=== PATIENT | male | born 1955 | race Caucasian/White ===

== ENCOUNTER 2021-06-12 12:27 | Emergency (ER) | payer MEDICARE, MEDICAID ==
[~2021-06-12] VITALS: Ht 172.7 cm; Wt 61.4 kg
[~2021-06-12 12:27] MED LIST: BENA20TA82 PO; IBUP-1984 PO; LOP25T PO; SIMV-42 PO
[2021-06-12] MEDS ORDERED: proCHLORperazine 10 MG/2 ml inj IV ONE (12:45)
[2021-06-12 12:55] LABS: BASOPHILS # (AUTO) 0.1 X10'3 (0-0.2); BASOPHILS % (AUTO) 1.2 % (0-1); EOSINOPHILS # (AUTO) 0.1 X10'3 (0-0.9); EOSINOPHILS % (AUTO) 1.8 % (0-6); HEMATOCRIT 38.2 % (42.0-52.0); HEMOGLOBIN 11.9 g/dl (14.0-17.9); LYMPHOCYTES # (AUTO) 1.5 X10'3 (1.1-4.8); LYMPHOCYTES % (AUTO) 20.3 % (21-51); MEAN CORPUSCULAR HEMOGLOBIN 24.2 PG (27.0-31.0); MEAN CORPUSCULAR HGB CONC 31.1 g/dL (33.0-36.5); MEAN CORPUSCULAR VOLUME 77.8 FL (78-98); MEAN PLATELET VOLUME 7.4 FL (7.4-10.4); MONOCYTES # (AUTO) 0.7 X10'3 (0-0.9); MONOCYTES % (AUTO) 9.3 % (2-12); NEUTROPHILS % (AUTO) 67.4 % (42-75); PLATELET COUNT 396 X10'3 (140-440); RED BLOOD COUNT 4.91 X10'6 (4.70-6.10); RED CELL DISTRIBUTION WIDTH 18.8 % (11.5-14.5); WHITE BLOOD COUNT 7.5 X10'3 (4.5-11.0)
[2021-06-12 13:10] LABS: PARTIAL THROMBOPLASTIN TIME 27 SECONDS (22-32)
[2021-06-12 13:11] LABS: ALANINE AMINOTRANSFERASE 10 U/L (12-78); ALBUMIN 3.1 G/DL (3.4-5.0); ALBUMIN/GLOBULIN RATIO 0.7 (1.1-1.5); ALKALINE PHOSPHATASE 117 IU/L (46-116); ANION GAP 10 (8-16); ASPARTATE AMINO TRANSFERASE 12 U/L (10-37); BILIRUBIN,TOTAL 0.3 MG/DL (0.1-1.0); BLOOD UREA NITROGEN 16 MG/DL (7-18); BUN/CREATININE RATIO 17.2 (5.4-32.0); CALCIUM 8.9 MG/DL (8.5-10.1); CHLORIDE 101 MMOL/L (99-107); CREATININE 0.93 MG/DL (0.60-1.10); GLUCOSE 121 MG/DL (70-104); POTASSIUM 3.8 MMOL/L (3.5-5.1); SODIUM 137 MMOL/L (135-145); TOTAL CARBON DIOXIDE 26.4 MMOL/L (24-32); TOTAL PROTEIN 7.6 G/DL (6.4-8.2); eGFR 81 ML/MIN
[2021-06-12] MEDS ORDERED: ketorolac trometh. 30mg/ml inj. IV ONE (13:30)
[2021-06-12] MEDS ORDERED: normal saline 1000ml 1,000 ML IV ONE ×2 (13:30→14:15)
[2021-06-12] MEDS ORDERED: SUMAtriptan succ. 6 MG/0.5ml vial SQ ONE (13:30)
[2021-06-12] MEDS ORDERED: acetaminophen 325mg tablet PO ONE (13:30)
[2021-06-12 13:37] LABS: PLATELET ESTIMATE NORMAL
[2021-06-12 13:38] LABS: ANISOCYTOSIS 2+; MICROCYTOSIS 1+
[2021-06-12] MEDS ORDERED: FLO0.4C PO (13:56)
[2021-06-12] MEDS ORDERED: OMEP40CA21 PO (13:56)
[2021-06-12] MEDS ORDERED: FERR325T29 PO (13:56)
[2021-06-12] MEDS ORDERED: CefTRIAXone/D5W-Rocephin 1gm 50 ML IV ONE (14:15)
[2021-06-12] MEDS ORDERED: azithromycin/NS 500mg/250ml 250 ML IV ONE (14:15)
--- NOTE | 2021-06-12 15:15 | NUR ---
Collect urine using straight cath technique. patient tolerated well.
[2021-06-12 15:31] LABS: UA COLLECTION TYPE STRAIGHT CATH
[2021-06-12 15:32] LABS: CLARITY,URINE CLEAR (Clear); COLOR,URINE YELLOW (Yellow); GLUCOSE, URINE NEGATIVE (Neg); KETONES,URINE NEGATIVE (Neg); NITRITES, URINE NEGATIVE (Neg); OCCULT BLOOD,URINE NEGATIVE (Neg); PROTEIN,URINE TRACE mg/dl (Neg); URINE AMPHETAMINE SCREEN POSITIVE (Neg); URINE BARBITUATE SCREEN NEGATIVE (Neg); URINE BENZODIAZEPINES SCREEN NEGATIVE (Neg); URINE CANNABINOID SCREEN POSITIVE (Neg); URINE COCAINE SCREEN NEGATIVE (Neg); URINE METHADONE SCREEN NEGATIVE (Neg); URINE OPIATE SCREEN NEGATIVE (Neg); URINE PHENCYCLIDINE SCREEN NEGATIVE (Neg)
[2021-06-12 15:33] LABS: LEUKOCYTE ESTERASE ,URINE NEGATIVE (Neg); UROBILINOGEN,URINE 0.2 E.U/dL (0.2-1.0)
[2021-06-12 15:40] LABS: CELLULAR CAST 0-4 /LPF (NEGATIVE); SQUAMOUS EPITHELIAL CELL,UR FEW /LPF (FEW)
[2021-06-12 15:42] LABS: BACTERIA,URINE FEW /HPF (Neg); RBC,URINE 0-2 /HPF (0-2); WBC,URINE 0-4 /HPF (0-4)
[2021-06-12] MEDS ORDERED: iohexol 350MG/ML 100ml bottle IV ONE ×2 (15:50→16:28)
[2021-06-12] MEDS ORDERED: CEPH250T PO (19:00)
--- NOTE | 2021-06-12 19:00 | NUR ---
UPON SHIFT CHANGE, THIS PT ARRIVED AND PT WANTS TO LEAVE AMA; DR BARCLAY SPOKE WITH FAMILY AND THEY WANT TO LEAVE; PT IS AOX4 AND INDEPENDENT; PT SIGNED AMA FORM AND WAS TURNED IN; IVS REMOVED; PT WC TO CAR AND AMBULATED FROM RAP TO VEHICLE APPROPRIATELY; VSS UPON DC
[2021-06-12 19:37] VITALS: BP 109/68
== END 2021-06-12 19:01 | disposition left against medical advice (07) ==
LOC: ER 12:27
DX: J18.9 Pneumonia, unspecified organism (principal); R51.9 Headache, unspecified; G93.41 Metabolic encephalopathy; R47.1 Dysarthria and anarthria; I95.9 Hypotension, unspecified; I25.10 Atherosclerotic heart disease of native coronary artery without angina pectoris; Z20.822 Contact with and (suspected) exposure to COVID-19; J44.9 Chronic obstructive pulmonary disease, unspecified
CPT/HCPCS: 36415; 70450; 70496; 70498; 71045; 80053; 80305; 81001; 82948; 83880; 84484; 85008; 85025; 85610; 85730; 86885; 86900; 86901; 87635; 93005; 96361; 96365; 96367; 96375; 99285; C9803; J0456; J0696; J0780; J1885; J7030; Q9967

== ENCOUNTER 2021-09-06 10:45 | Day surgery (SDC) | payer MEDICARE, MEDICAID ==
[~2021-09-06] VITALS: Ht 170.2 cm; Wt 53.1 kg
[2021-09-06] VITALS (7 sets, daily range): BP systolic 109–146; BP diastolic 56–72
[~2021-09-06 10:45] MED LIST changes: +FERR325T29 PO; +FLO0.4C PO; -IBUP-1984 PO; -LOP25T PO; +OMEP40CA21 PO
[2021-09-06] MEDS ORDERED: normal saline 1000ml 1,000 ML IV SCH (11:15)
[2021-09-06 11:39] LABS: BASOPHILS # (AUTO) 0.1 X10'3 (0-0.2); EOSINOPHILS # (AUTO) 0.1 X10'3 (0-0.9); HEMATOCRIT 33.5 % (42.0-52.0); LYMPHOCYTES # (AUTO) 0.8 X10'3 (1.1-4.8); MEAN PLATELET VOLUME 6.5 FL (7.4-10.4); MONOCYTES # (AUTO) 0.9 X10'3 (0-0.9)
[2021-09-06 11:40] LABS: BASOPHILS % (AUTO) 0.4 % (0-1); EOSINOPHILS % (AUTO) 0.7 % (0-6); HEMOGLOBIN 10.3 g/dl (14.0-17.9); LYMPHOCYTES % (AUTO) 7.1 % (21-51); MEAN CORPUSCULAR HEMOGLOBIN 24.7 PG (27.0-31.0); MEAN CORPUSCULAR HGB CONC 30.8 g/dL (33.0-36.5); MEAN CORPUSCULAR VOLUME 80.2 FL (78-98); MONOCYTES % (AUTO) 7.6 % (2-12); NEUTROPHILS # (AUTO) 9.7 X10'3 (1.8-7.7); NEUTROPHILS % (AUTO) 84.2 % (42-75); PLATELET COUNT 691 X10'3 (140-440); RED BLOOD COUNT 4.18 X10'6 (4.70-6.10); RED CELL DISTRIBUTION WIDTH 18.6 % (11.5-14.5); WHITE BLOOD COUNT 11.6 X10'3 (4.5-11.0)
[2021-09-06] MEDS ORDERED: ASPI-611 PO (11:57)
[2021-09-06 12:02] LABS: ANISOCYTOSIS 2+; HYPOCHROMASIA 1+; PLATELET ESTIMATE INCREASED; SCHISTOCYTES FEW
[2021-09-06 12:03] LABS: POLYCHROMASIA FEW
[2021-09-06] MEDS ORDERED: iohexol 300 MG/1 ML 50ml polymer ONE (12:39)
[2021-09-06] MEDS ORDERED: heparin sodium, porcine/PF 100unit/ml 5ML syringe ONE (12:39)
[2021-09-06] MEDS ORDERED: midazolam 1 mg/ML 2ml injection ONE (12:39)
[2021-09-06] MEDS ORDERED: fentaNYL/PF 50MCG/1 ML 2ML syringe ONE (12:39)
[2021-09-06] MEDS ORDERED: LIDOcaine 1% 30ml preserv. free vial IJ STA (12:40)
[2021-09-06] MEDS ORDERED: glucagon, human recombinant 1mg kit ONE (12:42)
[2021-09-06] MEDS ORDERED: LIDOCAINE 1%/EPI 1:100,000 inj. 10 ML multi-dose vial ONE (12:48)
[2021-09-06] MEDS ORDERED: FLU VACC QS2021-22(6MOS UP)/PF 60 MCG/0.5 ML SYRINGE IM ONE (13:00)
[2021-09-06] MEDS ORDERED: diphenhydrAMINE 50 mg/ml inj ONE (13:14)
== END 2021-09-06 15:40 | disposition home or self-care (01) ==
LOC: SSTAY O 10:45
PROVIDERS: ATTEND Preventive Medicine Aerospace Medicine
DX: C09.0 Malignant neoplasm of tonsillar fossa (principal)
CPT/HCPCS: 36415; 36561; 49440; 76937; 77001; 85025; C1769; C1788; C1894; J1200; J1610; J1642; J2250; J3010; J3490; J7030; Q9967; 85008

== ENCOUNTER 2021-09-19 10:57 | Day surgery (SDC) | payer MEDICARE, MEDICAID ==
[2021-09-13 16:09] LABS: BASOPHILS # (AUTO) 0.1 X10'3 (0-0.2); BASOPHILS % (AUTO) 0.5 % (0-1); EOSINOPHILS % (AUTO) 0.4 % (0-6); LYMPHOCYTES % (AUTO) 8.3 % (21-51); MEAN CORPUSCULAR HGB CONC 31.3 g/dL (33.0-36.5); MEAN CORPUSCULAR VOLUME 79.8 FL (78-98); MEAN PLATELET VOLUME 7.3 FL (7.4-10.4); MONOCYTES # (AUTO) 0.8 X10'3 (0-0.9); MONOCYTES % (AUTO) 6.5 % (2-12); NEUTROPHILS # (AUTO) 10.3 X10'3 (1.8-7.7); NEUTROPHILS % (AUTO) 84.3 % (42-75); PRE OP PLATELET COUNT 524 X10'3 (140-440); RED BLOOD COUNT 4.39 X10'6 (4.70-6.10); RED CELL DISTRIBUTION WIDTH 18.3 % (11.5-14.5)
[2021-09-13 16:29] LABS: ALBUMIN 2.6 G/DL (3.4-5.0); ALBUMIN/GLOBULIN RATIO 0.5 (1.1-1.5); ALKALINE PHOSPHATASE 90 IU/L (46-116); BLOOD UREA NITROGEN 13 MG/DL (7-18); BUN/CREATININE RATIO 23.6 (5.4-32.0); CHLORIDE 97 MMOL/L (99-107); CREATININE 0.55 MG/DL (0.60-1.10); PRE OP ALT 20 U/L (30-65); PRE OP ANION GAP 7 (8-16); PRE OP AST 15 U/L (10-37); PRE OP BILIRUB, TOTAL 0.2 MG/DL (0.0-1.0); PRE OP GLUCOSE 130 MG/DL (70-104); PRE OP POTASSIUM 4.1 MMOL/L (3.4-5.1); PRE OP SODIUM 136 MMOL/L (135-145); TOTAL CARBON DIOXIDE 31.8 MMOL/L (24-32); TOTAL PROTEIN 7.6 G/DL (6.4-8.2); eGFR > 90 ML/MIN
[~2021-09-19] VITALS: Ht 170.2 cm; Wt 52.6 kg
[~2021-09-19 10:57] MED LIST changes: +ASPI-611 PO; +cefazolin/dext.iso 2gm/50ml IV ONE; +famotidine 20mg tablet PO ONE; +ringers solution, lacted 1,000 ML IV SCH
[2021-09-19 11:00] VITALS: BP 125/63
[2021-09-19] MEDS ORDERED: BUPIVAcaine/PF 2.5 mg/ml (0.25%) 30ml vial ONE (11:49)
[2021-09-19] MEDS ORDERED: propofol inj 20 ML IV ONE (12:49)
[2021-09-19] MEDS ORDERED: sevoflurane 250ml liquid IH ONE (12:49)
[2021-09-19] MEDS ORDERED: fentaNYL/PF 50MCG/1 ML 2ML syringe ONE (12:50)
[2021-09-19] MEDS ORDERED: midazolam 1 mg/ML 2ml injection ONE (12:57)
[2021-09-19] MEDS ORDERED: rocuronium 10mg/ml inj IV ONE (13:30)
[2021-09-19] MEDS ORDERED: dexamethasone sod phosphate 4mg/ml inj. ONE (13:31)
[2021-09-19] MEDS ORDERED: ePHEDrine 50MG/ML INJ. ONE (13:31)
[2021-09-19] MEDS ORDERED: sugammadex 200mg/2ml injection IV ONE (14:02)
[2021-09-19 14:23] VITALS: BP 140/79
--- NOTE | 2021-09-19 14:23 | NUR ---
Received from OR via , accompanied by Anesthesiologist DR ROTHMAN and report given by Anesthesiolgist. AWAKENS TO VOICE. VITALS STABLE. DRESSING DI. GENA PAIN.
[2021-09-19 14:33] VITALS: BP_SYST 129; BP_SYST 150; BP_DIAS 71; BP_DIAS 73
[2021-09-19 14:43] VITALS: BP 129/73
[2021-09-19 14:53] VITALS: BP 138/78
[2021-09-19 15:03] VITALS: BP 127/72
--- NOTE | 2021-09-19 15:23 | NUR ---
AWAKE AND ORIENTED. VITALS STABLE. DRESSING DI. GENA PAIN. HOME WITH HIS AT THIS TIME.
== END 2021-09-19 15:23 | disposition home or self-care (01) ==
LOC: PRE-OP 10:57
PROVIDERS: ATTEND Surgery
DX: C09.0 Malignant neoplasm of tonsillar fossa (principal); I10 Essential (primary) hypertension; E78.00 Pure hypercholesterolemia, unspecified; J43.9 Emphysema, unspecified; G47.30 Sleep apnea, unspecified; I25.2 Old myocardial infarction; F32.9 Major depressive disorder, single episode, unspecified; N40.0 Benign prostatic hyperplasia without lower urinary tract symptoms; D64.9 Anemia, unspecified; K21.9 Gastro-esophageal reflux disease without esophagitis; F12.90 Cannabis use, unspecified, uncomplicated; Z87.891 Personal history of nicotine dependence; Z95.1 Presence of aortocoronary bypass graft; Z79.82 Long term (current) use of aspirin; Z79.899 Other long term (current) drug therapy; Z86.73 Personal history of transient ischemic attack (TIA), and cerebral infarction without residual deficits; Z85.818 Personal history of malignant neoplasm of other sites of lip, oral cavity, and pharynx; Z20.822 Contact with and (suspected) exposure to COVID-19
CPT/HCPCS: 36415; 43653; 80053; 82948; 85025; J0690; J1100; J2250; J2704; J3010; J3490; J7030; J7120; U0003; U0005; Z7506; Z7508; Z7512; A4215; A4618; B4087